=== PATIENT | male | born 1970 | race Caucasian/White ===

== ENCOUNTER 2018-06-24 14:44 | Emergency (ER) | payer BC ==
[~2018-06-24] VITALS: Ht 190.5 cm; Wt 102.4 kg
[2018-06-24 15:38] LABS: HEMATOCRIT 46.6 % (38.0-50.0); HEMOGLOBIN 16.8 G/DL (12.5-16.6); MCH 32.7 PG (29.0-34.0); MCHC 36.1 G/DL (30.0-36.0); MCV 90.8 FL (86-99); PLATELET COUNT 246 K/uL (156-360); RBC DIS.WIDTH-CV 11.9 % (11.8-14.6); RBC DIS.WIDTH-SD 39.6 % (39-53); RED BLOOD COUNT 5.13 M/uL (4.00-5.50); WHITE BLOOD COUNT 7.8 K/uL (4.1-10.2)
[2018-06-24 15:46] LABS: CHLORIDE 101 mEq/L (99-109); POTASSIUM 4.4 mEq/L (3.7-5.4); SODIUM 137 mEq/L (136-147)
[2018-06-24 15:48] LABS: GLUCOSE 103 mg/dL (70-99)
[2018-06-24 15:51] LABS: CREATININE 1.2 mg/dL (0.6-1.3)
[2018-06-24 15:52] LABS: UREA NITROGEN (BUN) 11 mg/dL (9-23)
[2018-06-24 15:53] LABS: D-DIMER ELISA < 150.00 ng/mLDDU (<230)
[2018-06-24 15:57] LABS: GFR ESTIMATE (CALCULATED) > 59 mL/min/ (58.99-99999)
[2018-06-24 16:00] LABS: TROP-I INTERPRETATION NEGATIVE; TROPONIN-I < 0.01 ng/mL (0.0-0.30)
[2018-06-24 18:48] LABS: TROP-I INTERPRETATION NEGATIVE; TROPONIN-I < 0.01 ng/mL (0.0-0.30)
[2018-06-24 19:25] VITALS: BP 123/99
== END 2018-06-24 19:27 | disposition left against medical advice (07) ==
LOC: EME 14:44
PROVIDERS: Physician Assistant
DX: R07.9 Chest pain, unspecified (principal); Z53.21 Procedure and treatment not carried out due to patient leaving prior to being seen by health care provider
CPT/HCPCS: 71046; 80048; 84484; 85027; 85379; 93005; 99281; 99284